=== PATIENT | male | born 1965 | race Hispanic/Latino ===

== ENCOUNTER 2017-12-06 11:15 | Outpatient (RCR) | payer OTHER | END 2017-12-18 | LOC: OT 11:15 | PROVIDERS: ATTEND Specialist | DX: M19.022 Primary osteoarthritis, left elbow (principal) ==

== ENCOUNTER 2023-11-13 13:13 | Emergency (ER) | payer MEDICARE ==
[~2023-11-13] VITALS: Ht 167.6 cm; Wt 99.8 kg
[~2023-11-13 13:13] MED LIST: AMLODIPINE BESY10 MG PO; DIOVAN160 MG PO; NEURONTIN100 MG PO; SYNTHROID125 MCG PO
[2023-11-13 13:19] VITALS: PULSE 78; RESP 17; TEMP 98; O2SAT 98
[2023-11-13] MEDS: FLUORESCEIN SOD(OPTH) 1 MG STRP OP ONE (13:36)
[2023-11-13] MEDS: TETRACAINE HCL 0.5% OPTH SOLN 4 ML BTL OP ONE (13:37)
[2023-11-13] MEDS ORDERED: MOXIFLOXACIN3 ML OS (14:02)
== END 2023-11-13 14:09 | disposition home or self-care (01) ==
LOC: ER 13:15
DX: H57.12 Ocular pain, left eye (principal); T15.02XA Foreign body in cornea, left eye, initial encounter; I10 Essential (primary) hypertension; E03.9 Hypothyroidism, unspecified
CPT/HCPCS: 99282